=== PATIENT | female | born 1955 | race Two or more races ===

== ENCOUNTER 2025-05-06 20:43 | Emergency (ER) | payer BC ==
[~2025-05-06] VITALS: Ht 170.2 cm; Wt 68.0 kg
[2025-05-06] MEDS ORDERED: LABETALOL HCL 100 MG/20 ML VIAL ONE (21:13)
[2025-05-06] MEDS ORDERED: LORAZEPAM 2 MG/1 ML VIAL ONE (21:13)
[2025-05-06] MEDS ORDERED: ONDANSETRON 4 MG/2 ML VIAL ONE (21:13)
[2025-05-06 21:14] LABS: PLATELET COUNT (AUTO) 268 K/uL (179-408); RED BLOOD CELL COUNT(AUTO) 4.99 MIL/uL (3.63-4.92); RED CELL DISTRIBUTION WIDTH 13.1 % (12.3-17.7); WHITE BLOOD COUNT (AUTO) 11.4 K/uL (3.8-11.8)
[2025-05-06] MEDS: LORAZEPAM 2 MG/1 ML VIAL IV ONE (21:22)
[2025-05-06] MEDS: ONDANSETRON 4 MG/2 ML VIAL IV ONE (21:23)
[2025-05-06] MEDS: LABETALOL HCL 100 MG/20 ML VIAL IV ONE (21:23)
[2025-05-06 21:29] LABS: ASPARTATE AMINOTRANSFERASE 12 U/L (15-37); CREATININE 1.2 mg/dL (0.6-1.3); SODIUM SERUM 139 mmol/L (136-145); TOTAL PROTEIN, SERUM 8.2 g/dL (6.4-8.2); UREA NITROGEN, BLOOD 17 mg/dL (7-18)
[2025-05-06] MEDS: IV NORMAL SALINE 1000 ML BAG IV ONE (21:31)
[2025-05-06] MEDS ORDERED: LORA2TAB95 PO (22:33)
[2025-05-06 22:43] VITALS: BP 136/98; O2SAT 96
== END 2025-05-06 22:45 | disposition home or self-care (01) ==
LOC: ER 22:09
DX: F41.9 Anxiety disorder, unspecified (principal); F41.0 Panic disorder [episodic paroxysmal anxiety]; R06.00 Dyspnea, unspecified; R07.9 Chest pain, unspecified; R11.2 Nausea with vomiting, unspecified; R51.9 Headache, unspecified; R53.1 Weakness; E78.5 Hyperlipidemia, unspecified; Z86.16 Personal history of COVID-19; Z20.822 Contact with and (suspected) exposure to COVID-19
CPT/HCPCS: 36415; 71045; 84484; 85025; A4606; A4663; J2060; J2405; J3490; J7040

== ENCOUNTER 2025-06-29 18:17 | Emergency (ER) | payer OTHER, BC ==
[~2025-06-29] VITALS: Ht 165.1 cm; Wt 80.3 kg
[~2025-06-29 18:17] MED LIST: LORA2TAB95 PO
[2025-06-29] MEDS ORDERED: NEBI10TA2 PO (18:36)
[2025-06-29] MEDS ORDERED: ESCI5TAB PO (18:36)
[2025-06-29] MEDS ORDERED: ONDANSETRON 4 MG/2 ML VIAL ONE (19:09)
[2025-06-29] MEDS ORDERED: MECLIZINE HCL 25 MG TABLET ONE (19:09)
[2025-06-29] MEDS ORDERED: LORAZEPAM 2 MG/1 ML VIAL ONE (19:10)
[2025-06-29 19:20] LABS: PLATELET COUNT (AUTO) 236 K/uL (179-408); RED BLOOD CELL COUNT(AUTO) 4.51 MIL/uL (3.63-4.92); RED CELL DISTRIBUTION WIDTH 13.3 % (12.3-17.7); WHITE BLOOD COUNT (AUTO) 8.5 K/uL (3.8-11.8)
[2025-06-29] MEDS: IV NORMAL SALINE 1000 ML BAG IV ONE (19:20)
[2025-06-29] MEDS: LORAZEPAM 2 MG/1 ML VIAL IV ONE (19:20)
[2025-06-29] MEDS: ONDANSETRON 4 MG/2 ML VIAL IV ONE (19:21)
[2025-06-29] MEDS: MECLIZINE HCL 25 MG TABLET PO ONE (19:21)
[2025-06-29 19:26] LABS: CREATININE 1.0 mg/dL (0.6-1.3); SODIUM SERUM 137 mmol/L (136-145); UREA NITROGEN, BLOOD 15 mg/dL (7-18)
[2025-06-29 19:51] VITALS: BP 147/79
[2025-06-29] MEDS ORDERED: MECL-159 PO (20:02)
[2025-06-29 20:30] VITALS: BP 147/79; O2SAT 97
== END 2025-06-29 20:30 | disposition home or self-care (01) ==
LOC: ER 18:22
DX: R41.9 Unspecified symptoms and signs involving cognitive functions and awareness (principal); R42 Dizziness and giddiness; I11.9 Hypertensive heart disease without heart failure; R06.02 Shortness of breath; E78.5 Hyperlipidemia, unspecified; Z79.899 Other long term (current) drug therapy; Z86.16 Personal history of COVID-19
CPT/HCPCS: 36415; 70450; 71045; 83690; 84484; 85025; A4606; A4663; J2060; J2405; J7040; J8597